=== PATIENT | male | born 1955 | race Caucasian/White ===

== ENCOUNTER 2017-03-23 23:16 | Emergency (ER) | payer BC ==
[2017-03-24] MEDS ORDERED: Tetan/Diph/Pertus SYR(Tdap)* 0.5 ML SYR(BOOSTRIX) use SYR IM ONE (01:07)
[2017-03-24] MEDS ORDERED: Acetaminophen TAB* 325 MG PO ONE (03:15)
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
[2017-03-24 03:38] VITALS: BP 139/99
--- NOTE | 2017-03-24 07:51 | RAD ---
INDICATION: Right lower extremity pain, recent trauma. COMPARISON: There are no prior studies available for comparison. TECHNIQUE: Multiple real-time, color flow and Doppler tracings of the right lower extremity were obtained. FINDINGS: The common femoral, femoral, profunda femoral and popliteal veins all demonstrate normal compressibility, augmentation with compression and phasic response with respiration. The posterior tibial and peroneal veins demonstrate normal compressibility and augmentation with compression. There is a hypoechoic area present in the anterior aspect of the lower leg in the region of the patient's trauma measuring 4.8 x 2.0 x 3.6 cm in size suggestive of a small hematoma. IMPRESSION: 1. NO EVIDENCE FOR DEEP VENOUS THROMBOSIS. 2. FINDINGS SUGGESTIVE OF A SMALL HEMATOMA IN THE LOWER LEG AT THE SITE OF INJURY.
--- NOTE | 2017-03-24 07:59 | RAD ---
INDICATION: Head injury. COMPARISON: Comparison is made with a prior study from September 29, 2011. TECHNIQUE: Contiguous axial sections of the brain were obtained from the skull base to the vertex without contrast. FINDINGS: The ventricles, cisterns and sulci are within normal limits. No significant focal abnormality or mass effect is seen. There is no evidence for hemorrhage. No significant focal osseous abnormality is seen. The visualized portion of the paranasal sinuses and mastoid air cells appear clear. IMPRESSION: NO EVIDENCE FOR ACUTE INTRACRANIAL ABNORMALITY.
--- NOTE | 2017-03-24 08:05 | RAD ---
HISTORY: Fall with hematoma of the mid tibia COMPARISONS: None VIEWS: 4, Frontal and lateral views of the right foreleg FINDINGS: BONE DENSITY: Normal. BONES: There is a circumscribed, though located, nonaggressive appearing lesion of the proximal medial tibial metadiaphysis, measuring approximately 0.9 cm in size JOINTS: There is no arthropathy. ALIGNMENT: There is no dislocation. SOFT TISSUES: Unremarkable. OTHER FINDINGS: None. IMPRESSION: 1. NO ACUTE OSSEOUS INJURY. 2. THERE IS A WELL-DEFINED LYTIC LESION OF THE PROXIMAL MEDIAL TIBIA. WHILE THIS HAS A NONAGGRESSIVE APPEARANCE, GIVEN THE PATIENT AGE, METASTATIC DISEASE OR MYELOMA IS WITHIN THE DIFFERENTIAL. CONSIDER ATTENTION ON FOLLOW-UP IMAGING INCLUDING MRI TO INCLUDE THE AREA OF CONCERN PRELIMINARY FINDINGS WERE DISCUSSED WITH DR. MARTIN IN THE EMERGENCY DEPARTMENT AT APPROXIMATELY 8:02 AM ON 2016.
== END 2017-03-24 03:42 | disposition home or self-care (01) ==
LOC: ED 23:16
DX: S09.90XA Unspecified injury of head, initial encounter (principal); S80.01XA Contusion of right knee, initial encounter; Z86.73 Personal history of transient ischemic attack (TIA), and cerebral infarction without residual deficits; Z79.02 Long term (current) use of antithrombotics/antiplatelets; Z85.850 Personal history of malignant neoplasm of thyroid; Z86.718 Personal history of other venous thrombosis and embolism; I25.10 Atherosclerotic heart disease of native coronary artery without angina pectoris; E78.00 Pure hypercholesterolemia, unspecified; I10 Essential (primary) hypertension; G47.30 Sleep apnea, unspecified; Z87.891 Personal history of nicotine dependence; Z87.442 Personal history of urinary calculi; F41.9 Anxiety disorder, unspecified; W22.8XXA Striking against or struck by other objects, initial encounter; Y92.9 Unspecified place or not applicable
CPT/HCPCS: 70450; 90471; 90715; 99282; A9270-GY

== ENCOUNTER 2017-08-26 09:00 | Day surgery (SDC) | payer BC ==
[~2017-08-26 09:00] MED LIST: Buffered Lidocaine 0.9% SYRIN* 5 ML/SYR SYRINGE INTRADERM ONE
[2017-08-26] MEDS ORDERED: fentaNYL* 50 MCG/ML 2 ML VIAL (100 MCG VIAL) ONE (09:51)
[2017-08-26] MEDS ORDERED: Midazolam* 1 MG/ML 2 ML VIAL (2 MG) ONE (09:53)
[2017-08-26] MEDS ORDERED: Propofol* 10 MG/ML 20 ML BTL IV PUSH ONE (10:12)
[2017-08-26] MEDS ORDERED: Naloxone* 0.4 MG/ML 1 ML VIAL IV PRN (10:28)
[2017-08-26 10:56] VITALS: BP 136/78
[2017-08-26] MEDS ORDERED: Ibuprofen TAB* 600 MG ONE (11:16)
[2017-08-26] MEDS ORDERED: Acetaminophen TAB* 325 MG ONE (11:19)
[2017-08-26] MEDS ORDERED: traMADol TAB* 50 MG ONE (11:19)
--- NOTE | 2017-08-27 02:03 | OP ---
DATE OF OPERATION: 08/26/17 [facility] DATE OF : 51 SURGEON: Clare Avila MD CATERPILLAR TRACTOR OPERATOR: JITENDRA Izquierdo ANESTHESIA: Local MAC. PRE-OP DIAGNOSIS: Right ring finger trigger finger. POST-OP DIAGNOSES: Right ring finger trigger finger. OPERATIVE PROCEDURE: Right ring finger trigger release. INDICATIONS: Wicho is a 62-year-old man with triggering of his right ring finger. He has had trigger finger release in the past, presents for the same now with his right ring finger. ESTIMATED BLOOD LOSS: Zero. TOURNIQUET TIME: 10 minutes. DESCRIPTION OF PROCEDURE: The patient was brought to the operating room, was given a sedation anesthetic and a local infiltration of 10 cc of 1% plain lidocaine in the palm of his right hand. The skin of his right hand and forearm was prepped and draped in usual sterile fashion. The hand and forearm were exsanguinated and the tourniquet elevated to 250 mmHg. A transverse incision was made centered over the A1 reinier of the right ring finger. We dissected bluntly through the subcutaneous tissue. The A1 reinier was then incised longitudinally, completely releasing the flexor tendons, which did not have any abrasion, but had some tenosynovitis. The tenosynovitis was debrided. The wound was irrigated and skin edges reapproximated with 4-0 nylon suture. The wound was dressed with Xeroform, 4x4, Webril, and an Edi wrap. The patient tolerated the procedure well and was brought to the recovery room in good condition. [id number] #: [id number] MTDD
== END 2017-08-26 11:30 | disposition home or self-care (01) ==
LOC: OREAST 09:00
PROVIDERS: ATTEND Orthopaedic Surgery
DX: M65.341 Trigger finger, right ring finger (principal); Z86.73 Personal history of transient ischemic attack (TIA), and cerebral infarction without residual deficits; Z79.01 Long term (current) use of anticoagulants; E03.9 Hypothyroidism, unspecified; Z87.891 Personal history of nicotine dependence; I10 Essential (primary) hypertension; G47.33 Obstructive sleep apnea (adult) (pediatric); Z85.850 Personal history of malignant neoplasm of thyroid
CPT/HCPCS: A9270-GY; J2250; J2704; J3010

== ENCOUNTER 2017-09-04 11:32 | Emergency (ER) | payer BC ==
--- OUTSIDE RECORDS SUMMARY | 2017-09-04 11:37 | XMS REPORT ---
:1955 External Reference #:[id number] Author Organization [facility] Address [address] [address] Phone [phone] Care Team Providers Name Role Phone Clark Ba MD Primary Care Physician Unavailable Payers Type Date Identification Numbers Payment Provider Subscriber Commercial Policy Number: [id number] [facility] Taylor Wong Group Number: [id number] [address] PayID: [id number] [place] [address] Problems Date Description Provider Status Onset: 08/01/2015 Ischemic stroke Josefina Perkins M.D. Active Family History Date Family Member(s) Problem(s) Comments Mother Breast Cancer Social History Type Date Description Comments ETOH Use Has consumed alcohol in the past Smoking Patient is a former smoker Quit in 1983 Allergies, Adverse Reactions, Alerts Date Description Reaction Status Severity Comments 12/13/2012 NKDA active Medications Medication Date Status Form Strength Qnty SIG Indications Ordering Provider Acetaminophen-Codein 08/26 Active Tablets 300-30mg 15tab 1 tab by Clare de la paz # s mouth Avila, every M.D. 4-6 hours as needed for pain Benicar 00 Active Tablets 40mg 90tab 1 po qd Unknown /0000 s Plavix 00 Active Tablets 75mg 30tab 1 po qd Unknown /0000 s Synthroid Active Tablets 225mcg 90tab 1 po qd Unknown /0000 s Pravastatin Sodium Active Tablets 40mg 30tab 1 tablet Unknown /0000 s by mouth once daily at bedtime Amlodipine Besylate Active Tablets 10mg 1 by Unknown /0000 mouth every day Sertraline HCL Active Tablets 100mg 1 by Unknown /0000 mouth every day Hydrochlorothiazide Active Tablets 25mg 1 by Unknown /0000 mouth every day Centrum Adults Active Tablets 1 cap po Unknown /0000 daily Vyvanse Active Capsules 10mg Take One Unknown /0000 Capsule By Mouth Every Morning Ultracet 01/03 Hx Tablets 37.5-325m 30tab 1 - 2 po Clare /2013 g s q4-6hr Avila, - prn pain M.D. 06/16 Prestique Hx 50mg 2 tab qd - 07/11 Concerta Hx Tablets 18mg 1 by Unknown / ER mouth - every Vitamin D Hx Tablets 1000Unit 1 tab Unknown (Cholecalciferol) /0000 each day - by mouth 06/16 Vital Signs Date Vital Result Comment 09/02/2017 Height 69 inches 5'9" Weight 238.00 lb BP Systolic 128 mmHg BP Diastolic 76 mmHg Respiratory Rate 20 /min Body Temperature 98.0 F Pain Level 3 BMI (Body Mass Index) 35.1 kg/m2 08/18/2017 Height 69 inches 5'9" Weight 238.00 lb Heart Rate 68 /min BP Systolic 128 mmHg BP Diastolic 76 mmHg Respiratory Rate 17 /min Body Temperature 97.2 F Pain Level 8 BMI (Body Mass Index) 35.1 kg/m2 06/17/2016 Height 69 inches 5'9" Weight 237.00 lb Heart Rate 80 /min BP Systolic Sitting 138 mmHg BP Diastolic Sitting 72 mmHg BMI (Body Mass Index) 35.0 kg/m2 08/01/2015 Height 69 inches 5'9" Weight 224.00 lb Heart Rate 76 /min BP Systolic Sitting 142 mmHg BP Diastolic Sitting 86 mmHg Respiratory Rate 16 /min BMI (Body Mass Index) 33.1 kg/m2 01/03/2013 Height 69 inches 5'9" Weight 229.00 lb Heart Rate 80 /min BP Systolic Sitting 128 mmHg BP Diastolic Sitting 80 mmHg BMI (Body Mass Index) 33.8 kg/m2 12/13/2012 Height 69 inches 5'9" Weight 227.00 lb Heart Rate 80 /min BP Systolic Sitting 128 mmHg BP Diastolic Sitting 88 mmHg BMI (Body Mass Index) 33.5 kg/m2 Results Test Date Test Result H/L Range Note Surgical Pathology 01/16/2013 S RUN DATE: 01/18/ <SEE NOTE> 1 1 RUN DATE: 01/18/13 [facility] LAB LIVE PAGE 1 RUN TIME: [address] [place] [address] Specimen Inquiry Name: JOSEFINA WONG III : [address]: Clare Avila MD Acct: [id number] Unit: [id number] AGE: 57 Location: [facility] Re01/16/13 SEX: M Status: REG [facility] SPEC: [id number] JAVIER: 01/16/13- [facility] DR: Clare Avila MD REQ: [id number] RECD: 01/16/13-1204 STATUS: SOUT _ ORDERED: LEVEL III FINAL DIAGNOSIS Finger, right middle, biopsy: Benign fibrovascular tissue compatible with ganglion cyst. PRE-OPERATIVE DIAGNOSIS Right middle finger trigger finger and ganglion cyst GROSS DESCRIPTION The specimen is received in formalin labeled Josefina Wong III, Right Middle Finger Ganglion, and consists of a gruber-rivers soft tissue fragment measuring 0.4 x 0.3 x 0.3 cm. Submitted entirely, one cassette. Signed (signature on file) Rolan Ferrell MD [id number] END OF REPORT * ML=Testing performed at Main Lab DEPARTMENT OF PATHOLOGY, [address] [place] [address] Rolan Ferrell M.D. Director [facility] Permit #[id number] Procedures Date CPT Code Description Status 01/16/2013 17281 Excision Tendon Sheath Ganglion /Or Joint Capsule Hand Completed Or Finger 11/21/2012 87023 Polysomnography Sleep Staging 4+ Parameters W/Cpap Completed 11/01/2012 59523 Polysomnography Sleep Staging 4+ Parameters Completed 09/30/2011 49109 Color Flow Doppler/Interp & Reprt Completed 09/30/2011 95275 Pulse Wave/Continuous-Interp.RPT Completed 09/30/2011 77185 ECHO Transthorasic Realtime 2D W Doppler & Color Completed Flow Hosp Encounters Type Date Location Provider CPT E/M Dx Office Visit 08/18/2017 [facility] Avila 46496 M65.341 11:00a Precious Keller Office Visit 06/17/2016 [facility] Josefina Perkins 41677 G31.84 9:15a Arianna G46.6 Office Visit 08/01/2015 9:00a [facility] Josefina Perkins 63855 G46.6 Arianna G46.6 Office Visit 12/13/2012 8:00a [facility] Clare Avila 18296 727.42 Of [facility] Arinana 727.03 Office Visit 11/07/2012 11:17a Angela Miller 00897 327.23 [facility] Arianna Office Visit 09/12/2012 9:30a Angela Miller 49774 786.09 [facility] Arianna Office Visit 08/01/2012 8:30a [facility] Josefina Perkins, 49381 438.11 Services [facility] Arianna Plan of Care Future Appointment(s):09/05/2017 10:15 am - [facility] - JITENDRA Valladares-CM65.341 Trigger finger, right ring fingerFollow up:Follow up: as scheduled with Dr. Avila for post op
--- OUTSIDE RECORDS SUMMARY | 2017-09-04 11:37 | XMS REPORT ---
:1955 External Reference #:[id number] Author Organization [employer] Address [address] [address] Phone [phone] Care Team Providers Name Role Phone Clark Ba MD Primary Care Physician Unavailable Payers Type Date Identification Numbers Payment Provider Subscriber Commercial Policy Number: [id number] [facility] Taylor Wong Group Number: [id number] [address] PayID: [id number] [place] [address] Problems Date Description Provider Status Onset: 08/01/2015 [...] Form Strength Qnty SIG Indications Ordering Provider Benicar Active Tablets 40mg 90tab 1 po qd Unknown /0000 s Plavix Active Tablets 75mg 30tab 1 po qd [...] Tablets 37.5-325m 30tab 1 - 2 po g s q4-6hr Austin - marisoln pain M.D. 06/16 Prestique Hx 50mg 2 tab qd Unknown / - 07/11 Concerta Hx Tablets 18mg 1 by Unknown /0000 ER mouth - every Vitamin D Hx Tablets 1000Unit 1 tab Unknown (Cholecalciferol) /0000 each day - by mouth 06/16 Vital Signs Date Vital Result Comment 08/18/2017 Height 69 inches 5'9" Weight 238.00 [...] <SEE NOTE> 1 1 RUN DATE: 01/18/13 [facility] LAB LIVE PAGE 1 RUN TIME: 6682 [address] [place], [place] [address] Specimen Inquiry Name: FARIHA ANGELESJOSEFINA Rascon : [address]: Clare Avila MD Acct: [id number] Unit: [id number] AGE: 57 Location: [facility] Re01/16/13 SEX: M Status: REG [facility] SPEC: [id number] JAVIER: 01/16/13- [facility] DR: Clare Avila MD REQ: [id number] RECD: 01/16/13 STATUS: SOUT _ ORDERED: LEVEL III FINAL [...] Signed (signature on file) Rolan Ferrell MD [id number] END OF REPORT * ML=Testing performed at Main Lab DEPARTMENT OF PATHOLOGY, [address] [place] [address] Rolan Ferrell M.D. Director [facility] Permit #[id number] Procedures Date CPT Code Description Status 01/16/2013 91445 Excision Tendon Sheath Ganglion /Or Joint Capsule Hand Completed Or Finger 11/21/2012 68611 Polysomnography Sleep Staging 4+ Parameters W/Cpap Completed 11/01/2012 86557 Polysomnography Sleep Staging 4+ Parameters Completed 09/30/2011 11082 Color Flow Doppler/Interp & Reprt Completed 09/30/2011 10607 Pulse Wave/Continuous-Interp.RPT Completed 09/30/2011 44793 ECHO Transthorasic Realtime 2D W Doppler & Color Completed Flow Hosp Encounters Type Date Location Provider CPT E/M Dx Office Visit 08/18/2017 [facility] Avila, 94830 M65.341 11:00a Prec[facility] Keller Office Visit 06/17/2016 [facility] Josefina Perkins, 80836 G31.84 9:15a Arianna G46.6 Office Visit 08/01/2015 9:00a [facility] Josefina Perkins, 59726 G46.6 MMiranda G46.6 Office Visit 12/13/2012 8:00a [facility] Clare Avila, 00539 727.42 Of [facility] Arianna 727.03 Office Visit 11/07/2012 11:17a Angela Miller 09223 327.23 [facility] [place] Arianna Office Visit 09/12/2012 9:30a Angela Miller 61901 786.09 [facility] [place] Arianna Office Visit 08/01/2012 8:30a [place] [facility] Josefina Perkins, 47633 438.11 Services [facility] Arianna Plan of Care Future Appointment(s):09/05/2017 10:15 am - Clare Avila M.D. at [facility] Precious08/26/2017 10:00 am - LIZETTE Izquierdo at [facility].08/26/2017 10:00 am - Clare Avila M.D. at [facility].08/18/2017 - Clare Avila M.D.M65.341 Trigger finger, right ring fingerFollow up:Follow up: 9-10 days postop
[2017-09-04 12:08] VITALS: BP 155/87
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
== END 2017-09-04 13:05 | disposition home or self-care (01) ==
LOC: UCEAST 11:32
DX: J40 Bronchitis, not specified as acute or chronic (principal); E03.9 Hypothyroidism, unspecified; E78.5 Hyperlipidemia, unspecified; I11.9 Hypertensive heart disease without heart failure; Z79.01 Long term (current) use of anticoagulants; Z87.891 Personal history of nicotine dependence
CPT/HCPCS: 99212; G0463

== ENCOUNTER 2019-06-10 12:38 | Emergency (ER) | payer BC ==
[2019-06-10 12:51] VITALS: BP 151/85
--- NOTE | 2019-06-10 12:58 | UC ---
Throat Pain/Nasal Ilia HPI - HPI Summary HPI Summary: Patient presents to urgent care with 1 month history of sinus congestion pressure. Patient with postnasal drip. Patient denies fevers or chills. Patient denies headache or vision changes. Patient states symptoms are better in the shower. Patient has taken intermittent decongestants with short-term relief. Patient states he recently traveling up the symptoms seem worse. Patient denies any shortness of breath or chest pain. Patient without a history of sinus surgery. Patient's medications is entered in the EMR review at this visit. - History of Current Complaint Chief Complaint: UCGeneralIllness Stated Complaint: CONGESTED Time Seen by Provider: 06/10/19 12:56 Hx Obtained From: Patient Severity: Mild Pain Intensity: 0 Pain Scale Used: 0-10 Numeric - Allergies/Home Medications Allergies/Adverse Reactions: Allergies Allergy/AdvReac Type Severity Reaction Status Date / Time No Known Allergies Allergy Verified 06/10/19 12:51 PMH/Surg Hx/FS Hx/Imm Hx Previously Healthy: Yes Other History Of: Anticoagulant Therapy - plavix - Surgical History Surgical History: Yes Surgery Procedure, Year, and Place: 1970- shattered femur, punctured lung s/p benny OJEDA 1982 thyroid CA s/p thyroidectomy,. 1979 open surgery to removed kidney stone06/10 [facility] [place]- (left) renal calculi, [facility] [place] (right) carpal tunnel + ganglion removal (right) MIDDLE finger, 2012 [facility] [place]-. trigger finger repair. medial meniscus tear. INGUINAL HERNIA REPAIR - Family History Known Family History: Positive: Hypertension, Other - ETOH abuse, Non- Contributory - Social History Occupation: Retired Lives: With Family Alcohol Use: None Substance Use Type: None Smoking Status (MU): Former Smoker Amount Used/How Often: SOCIALLY X 5 YEARS When Did the Patient Quit Smoking/Using Tobacco: 1982 Review of Systems All Other Systems Reviewed And Are Negative: Yes Constitutional: Positive: Negative Skin: Positive: Negative ENT: Positive: Nasal Discharge, Sinus Congestion, Sinus Pain/Tenderness Respiratory: Positive: Negative Physical Exam - Summary Physical Exam Summary: Vital Signs Reviewed: Yes A+Ox3, no distress Eyes: Conjunctiva Clear, QUINN. EOM intact and full ENT: Hearing grossly normal fluid left ear, no erythema turbinates inflammed, turbinates boggy, +PND, + TTP max sinuses, mmoist, uvula midline, no exudate, no erythema Neck: Positive: Supple Respiratory: Positive: No respiratory distress, No accessory muscle use + CTA throughout no w/r Cardiovascular: RRR nl s1, s2 no m/r CBT <2 sec abd soft + BS nt/nd no guarding, no distension Musculoskeletal Exam: MARINA x 4 without difficulty Strength Intact, ROM Intact Neurological: Positive: Alert, + sensation throughout Psychological: Positive: Normal Response To examiner Skin: Positive: no rash, no ecchymosis Triage Information Reviewed: Yes Vital Signs: Initial Vital Signs Temp 97.7 F 06/10/19 12:48 Pulse 73 06/10/19 12:48 Resp 16 06/10/19 12:48 BP 151/85 06/10/19 12:48 Pulse Ox 97 06/10/19 12:48 Throat Pain/Nasal Course/Dx - Course Course Of Treatment: Patient presents to urgent care reporting 3-4 weeks progressive sinus pressure and pain. Patient with pressure in his ears. Symptoms improved in the shower worse at nighttime. On exam vital signs are stable. Exam consistent with rhinosinusitis. Discussed with patient recommend continue with Flonase. Decongestant. Motrin/APAP for pain Abx Secretion precaution. Return precautions. Patient comfortable and agreeable with plan. pt with elevated BP.history of same prcaution with decongestant - Differential Dx/Diagnosis Provider Diagnosis: Rhinosinusitis Discharge ED - Sign-Out/Discharge Documenting (check all that apply): Patient Departure All imaging exams completed and their final reports reviewed: No Studies - Discharge Plan Condition: Stable Disposition: HOME Prescriptions: Amoxicillin/Clavulanate TAB* [Augmentin TAB 875*] 875 mg PO BID #20 tab Patient Education Materials: Rhinosinusitis (ED) Referrals: Clark Ba MD [Primary Care Provider] - Additional Instructions: - Stay well hydrated. Drink plenty of non-alcoholic, non-caffinated beverages. - Alternate ibuprofen (Advil, Motrin) 600mg and Tylenol every 3 hours for pain or fever. Take with food. Do NOT take for more than 4-5 days. - Take antibiotics as prescribed until gone - These infections are spread by secretions - do NOT share eating or drinking utensils - clean items you share with other people such as cell phones, computer mouse, TV remote, computer tablets,etc. Once you have been antibiotics for 2 days, change your toothbrush and your pillowcase. - get plenty of restful sleep - humidify the air in the room where you sleep - boil water, run a hot steam shower, vaporizer, cups of water by heat register - okay to take over the counter decongestant and cough medication -continue to use nasal spray daily - contact your doctor or return with questions or concerns - Billing Disposition and Condition Condition: STABLE Disposition: Home
--- OUTSIDE RECORDS SUMMARY | 2019-06-12 16:02 | XMS REPORT | Continuity of Care Document ---
:1955 External Reference #:[id number] Author Name Valerie Bartlett O.D. Address [address] [place] [address] Care Team Providers Name Role Phone Kristyn Cazares M.D. - Family Care Team Information Bodily Injury Adjuster Medicine Clark Ba M.D. - Oil Well Driller Care Team Information Bodily Injury Adjuster Problems Active Problems Provider Date Essential hypertension Onset: Anxiety Onset: Hypercholesterolemia Onset: Central serous chorioretinopathy Page Varela O.D. Onset: 03/28/2015 Nuclear senile cataract Page Varela O.D. Onset: 03/28/2015 Hypermetropia Page Varela O.D. Onset: 03/28/2015 Regular astigmatism Page Varela O.D. Onset: 03/28/2015 Presbyopia Page Varela O.D. Onset: 03/28/2015 Conjunctival hemorrhage Page Varela O.D. Onset: 06/29/2017 Sleep apnea Onset: Vitreous degeneration Valerie Bartlett O.D. Onset: 05/21/2019 Social History Type Date Description Comments Sex Unknown ETOH Use Occasionally consumes alcohol Tobacco Use Start: Unknown Patient has never smoked Recreational Drug Use Denies Drug Use Smoking Status Reviewed: 05/21/19 Patient has never smoked Allergies, Adverse Reactions, Alerts Active Allergies Reaction Severity Comments Date Seasonal Severe 05/21/2019 Cat Dander Severe 05/21/2019 Medications Active Medications SIG Qnty Indications Ordering Provider Date Vyvanse Unknown 20mg Capsules Levothyroxine Sodium Clark Ba M.D. 225mcg Tablets Clopidogrel Bisulfate Jesenia, Clark M.D. 75mg Tablets Pravastatin Sodium Jesenia, Clark 40mg M.D. Tablets Sertraline HCL Unknown 100mg Tablets Amlodipine Besylate Clark Ba 10mg M.D. Tablets Famciclovir Shilo Wheeler 500mg Tablets M.D. Multi For Him Unknown Tablets Fluticasone Propionate Neosho Two Sprays Unknown In Each Nostril 50mcg/Act Suspension Every Day Olmesartan Medoxomil Take One Tablet By Unknown 40mg Mouth Every Day Tablets Levothyroxine Sodium Take One Tablet By Unknown Mouth Every Day 200mcg Tablets Before Breakfast Levothyroxine Sodium Take One Tablet By Unknown Mouth Every 25mcg Tablets Morning With 200mcg Before Breakfast Doxazosin Mesylate Take One Tablet By Unknown 8mg Mouth AT Bedtime Tablets Immunizations Description No Information Available Vital Signs Description No Information Available Results Description No Information Available Procedures Date Code Description Status 05/11/2019 91708 Patient No Show For Appt Completed Medical Devices Description No Information Available Encounters Description No Information Available Assessments Date Code Description Provider 05/21/2019 H25.13 Age-related nuclear cataract, bilateral Valerie Bartlett O.D. 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 eye 05/21/2019 H43.813 Vitreous degeneration, bilateral Valerie Bartlett O.D. Plan of Treatment 05/21/2019 - Valerie Bartlett O.D.H25.13 Age-related nuclear cataract, bilateralComments:You have been diagnosed with cataracts. If you are happy with your vision as it is now, then we willsee you at your next scheduled appointment. If you feel like your vision is getting worse before your scheduled appointment, please call Daisha at [phone].H35.711 Central serous chorioretinopathy, right eyeComments:CHECK AMSLER GRID TWICE A WEEKFollow up:1 Year Follow Up OCT MAC You can expect to have your eyes dilated at your next visit. If Dr. Bartlett orders any additional testing, it may require extra time. We recommend that you bring sunglasses, as dilation drops often make you light sensitive until they wear off. We always recommend you bring someone to drive you home if you are uncomfortable driving with your eyes dilated. If you have any questions before your next visit, feel free to call our office at .h43.813 Vitreous degeneration, bilateralComments:You have a Posterior Vitreous Detachment. Please read the pamphlet that was given to you. If you have any changes in your floaters or flashing lights, please contact this office. Functional Status Description No Information Available Mental Status Description No Information Available Referrals Description No Information Available
== END 2019-06-10 13:23 | disposition home or self-care (01) ==
LOC: UCEAST 12:38
DX: J32.9 Chronic sinusitis, unspecified (principal); R03.0 Elevated blood-pressure reading, without diagnosis of hypertension; Z79.01 Long term (current) use of anticoagulants; Z87.891 Personal history of nicotine dependence
CPT/HCPCS: 99212; G0463